=== PATIENT | female | born 2000 | race Caucasian/White ===

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

== ENCOUNTER 2020-10-21 09:51 | Emergency (ER) | payer OTHER, SELFPAY ==
--- OUTSIDE RECORDS SUMMARY | 2020-10-21 09:53 | XMS REPORT | Continuity of Care Document ---
:[address] [facility] Address [address] [place] [address] [address] [place] [address] Care Team Providers Name Role Phone Unavailable Unavailable Unavailable Problems Condition Condition Condition Status Onset Resolution Last Treating Co mments Source Name Details Category Date Date Treatment Clinician Date Depression Depression Problem Active [facility] Surveillan Surveillan Problem Active [facility] ce for ce for [facility] - [facility]oria control, control, l oral oral Outpati contracept contracept en t ailyn ailyn Clinics Depression Depression Problem Active [facility] screening screening [facility] Cough Cough Problem [facility] Wheezing Wheezing [facility] OCP (oral OCP (oral Problem Active [facility] contracept contracept Letitia kes - sayda pills) sayda pills) Me moria initiation initiation l Outpati ent Clinics Mild Mild Problem Active [facility] intermitte intermitte Letitia kes - nt asthma nt asthma Baldo tamiko with acute with acute l exacerbati exacerbati Ou tpati on on ent Clinics Seasonal Seasonal Problem Active [facility] allergies [facility] 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 Medications Ordered Filled Start Stop Current Ordering Indication Dosage Frequency Signature Comments Components Source Medication Medication Date Date Medication? Clinician (SIG) Name Name Albuterol Albuterol Yes Kelly 1-[address] [facility] Sulfate HFA Sulfate HFA Millender as needed [facility] Procedures This patient has no known procedures. Encounters Start End Encounter Admission Attending Care Care Encounter Source Date/Time Date/Time Type Type Clinicians Facility Department ID 2019-06-06 2019-06-06 Outpatient Jaquelin Gould [id number] [facility] 16:47[facility]00 16:47:00 [facility] 2018-12-15 2018-12-15 Outpatient Jaquelin Gould [id number] [facility] 15:00[facility]00 15:00[facility]00 [facility] ent Clinics Results This patient has no known results.
[2020-10-21] MEDS ORDERED: ALBUTEROL 2.5 MG/3 ML NEB SOL ONE (10:21)
[2020-10-21] MEDS ORDERED: IPRATROPIUM BROM 0.5MG/2.5ML ONE (10:22)
--- NOTE | 2020-10-21 10:44 | EDPHYS ---
Physician Documentation [facility] Name: Aleyda Barfield Age: 20 yrs Sex: Female : 2000 Arrival Date: 10/21/2020 Time: 09:52 Bed DIS8 Private MD: ED Physician William Dueñas HPI: 10/21 10:37 This 20 yrs old Female presents to ER via Ambulatory with complaints of pm1 Shortness Of Breath. 10:37 The patient has shortness of breath that occurred at home, and the patient has a pm1 history of asthma. Onset: The symptoms/episode began/occurred this morning. Duration: The symptoms are continuous. The patient's shortness of breath is aggravated by No medications for her asthma. Patient has not been able to afford her medications, is alleviated by nothing. Associated signs and symptoms: Pertinent negatives: chest pain, non-productive cough, fever, Earache sore throat runny nose. Severity of symptoms: in the emergency department the symptoms are worse. The patient has experienced similar episodes in the past, several times. The patient has not recently seen a physician. Historical: - Allergies: 09:55 No Known Allergies; ss - Home Meds: 09:55 None [Active]; ss - PMHx: 09:55 Asthma; ss - PSHx: 09:55 None; ss - Immunization history:: Client reports having NOT received the Covid vaccine. - Social history:: Smoking status: Reported history of juuling and/or vaping. ROS: 10:37 Constitutional: Negative for fever, chills, and weight loss, Cardiovascular: Negative pm1 for chest pain, palpitations, and edema. 10:37 Abdomen/GI: Negative for abdominal pain, nausea, vomiting, diarrhea, and constipation, Back: Negative for injury and pain, MS/Extremity: Negative for injury and deformity, Skin: Negative for injury, rash, and discoloration, Neuro: Negative for headache, weakness, numbness, tingling, and seizure. 10:37 Respiratory: Positive for shortness of breath. Exam: 10:37 Constitutional: This is a well developed, well nourished patient who is awake, alert, pm1 and in no acute distress. Head/Face: Normocephalic, atraumatic. 10:37 Back: No spinal tenderness. No costovertebral tenderness. Full range of motion. Skin: Warm, dry with normal turgor. Normal color with no rashes, no lesions, and no evidence of cellulitis. MS/ Extremity: Pulses equal, no cyanosis. Neurovascular intact. Full, normal range of motion. 10:37 Eyes: Exam is negative for acute changes, Extraocular movements: no acute changes, Conjunctiva: normal, no injection, Sclera: no acute changes, icterus, is present. 10:37 ENT: Exam is negative for acute changes, Mouth: no acute changes, Lips: normal, Oral mucosa: normal, pink and intact, moist. 10:37 Cardiovascular: Exam negative for acute changes, Rate: tachycardic, Rhythm: regular, Pulses: no pulse deficits are appreciated, Heart sounds: normal. 10:37 Respiratory: mild respiratory distress is noted, Respirations: tachypnea, that is mild, Breath sounds: wheezing: expiratory that is mild, is heard diffusely. 10:37 Abdomen/GI: Inspection: obese Palpation: abdomen is soft and non-tender, in all quadrants. 10:37 Neuro: Exam negative for acute changes, Orientation: is normal, Mentation: is normal, Motor: is normal, moves all fours, Sensation: is normal, no obvious gross deficits. Vital Signs: 09:52 Pulse 117; Resp 30; Pulse Ox 96% on R/A; Weight 90.72 kg; Height 5 ft. 7 in. (170.18 ss cm); 09:56 Resp 26; Temp 98.1(TE); Pulse Ox 98% ; ss 10:05 BP 187 / 112; Resp 24; Pulse Ox 99% on R/A; ss 09:52 Body Mass Index 31.32 (90.72 kg, 170.18 cm) ss MDM: 10:09 Patient medically screened. pm1 10:39 Data reviewed: vital signs. Data interpreted: Pulse oximetry: on room air is 99 %. pm1 Interpretation: normal. 10:40 Counseling: I had a detailed discussion with the patient and/or guardian regarding: the pm1 historical points, exam findings, and any diagnostic results supporting the discharge/admit diagnosis, the need for outpatient follow up, a family practitioner, a migratory worker, The need for medications to treat asthma exacerbations, to return to the emergency department if symptoms worsen or persist or if there are any questions or concerns that arise at home. Administered Medications: 10:05 Drug: Albuterol - atroVENT (ipratropium) (3:1) (2.5 mg - 0.5 mg) 3 ml Route: Nebulizer; 10:47 Drug: Decadron (dexamethasone) 10 mg Route: IM; Site: left deltoid; hb Disposition: 16:45 Co-signature as Attending Physician, William Dueñas. Co-signature as Attending Physician, ifeanyi Dueñas I agree with the assessment and plan of care. Disposition Summary: 10/21/20 10:43 Discharge Ordered Location: Home pm1 Problem: new pm1 Symptoms: have improved pm1 Condition: Stable pm1 Diagnosis - Unspecified asthma with (acute) exacerbation pm1 Followup: pm1 - With: Emergency Department - When: As needed - Reason: Worsening of condition Followup: pm1 - With: Private Physician - When: 2 - 3 days - Reason: Recheck today's complaints, Continuance of care, Re-evaluation by your physician Discharge Instructions: - Discharge Summary Sheet pm1 - Asthma, Adult pm1 Forms: - Medication Reconciliation Form pm1 - Thank You Letter pm1 - Antibiotic Education pm1 - Prescription Opioid Use pm1 Prescriptions: - Ventolin HFA 90 mcg/actuation Inhalation HFA aerosol inhaler - inhale 2 puff by INHALATION route every 4-6 hours As needed; 1 Inhaler; pm1 Refills: 0, Product Selection Permitted - Prednisone 20 mg Oral Tablet - take 3 tablets by ORAL route once daily for 5 days; 15 tablet; Refills: 0, pm1 Product Selection Permitted - Albuterol Sulfate 2.5 mg /3 mL (0.083 %) Inhalation Solution for Nebulization - inhale 1 unit by NEBULIZATION route every 8 hours As needed; 1 box; Refills: 0, pm1 Product Selection Permitted Signatures: Emily Street RN RN ss Oswaldo Gaytan, KAIA BELL HOLE DIGGER pm1 Argelia South RN RN William Dueñas3
--- NOTE | 2020-10-21 10:44 | ER ---
Nurse's Notes [facility] Name: Aleyda Barfield Age: 20 yrs Sex: Female : 2000 Arrival Date: 10/21/2020 Time: 09:52 Bed DIS8 Private MD: Diagnosis: Unspecified asthma with (acute) exacerbation Presentation: 10/21 09:52 Chief complaint: Patient states: Shortness of breath that began this morning. Pt ss reports a hx of asthma and is unable to afford her medication. Coronavirus screen: Client denies travel out of the [place] in the last 14 days. Ebola Screen: Patient denies exposure to infectious person. Patient denies travel to an Ebola-affected area in the 21 days before illness onset. Initial Sepsis Screen: Does the patient meet any 2 criteria? No. Patient's initial sepsis screen is negative. Does the patient have a suspected source of infection? No. Patient's initial sepsis screen is negative. Risk Assessment: Do you want to hurt yourself or someone else? Patient reports no desire to harm self or others. Onset of symptoms was October 21, 2020. 09:52 Method Of Arrival: Ambulatory 09:52 Acuity: KENYATTA 3 ss Historical: - Allergies: 09:55 No Known Allergies; ss - Home Meds: 09:55 None [Active]; ss - PMHx: 09:55 Asthma; ss - PSHx: 09:55 None; ss - Immunization history:: Client reports having NOT received the Covid vaccine. - Social history:: Smoking status: Reported history of juuling and/or vaping. Vital Signs: 09:52 Pulse 117; Resp 30; Pulse Ox 96% on R/A; Weight 90.72 kg; Height 5 ft. 7 in. (170.18 ss cm); 09:56 Resp 26; Temp 98.1(TE); Pulse Ox 98% ; ss 10:05 BP 187 / 112; Resp 24; Pulse Ox 99% on R/A; ss 09:52 Body Mass Index 31.32 (90.72 kg, 170.18 cm) ED Course: 09:52 Patient arrived in ED. ss 09:54 Oswaldo Gaytan NP is PHCP. pm1 09:54 William Dueñas is Attending Physician. pm1 09:55 Triage completed. ss 09:55 Arm band placed on. ss 10:46 Argelia South, RN is Primary Nurse. hb 11:04 No provider procedures requiring assistance completed. Patient did not have IV access hb during this emergency room visit. Administered Medications: 10:05 Drug: Albuterol - atroVENT (ipratropium) (3:1) (2.5 mg - 0.5 mg) 3 ml Route: Nebulizer; ss 10:47 Drug: Decadron (dexamethasone) 10 mg Route: IM; Site: left deltoid; hb Outcome: 10:43 Discharge ordered by MD. pm1 11:04 Discharged to home ambulatory. hb 11:04 Condition: stable 11:04 Discharge instructions given to patient, Instructed on discharge instructions, follow up and referral plans. medication usage, Demonstrated understanding of instructions, follow-up care, medications, Prescriptions given X 3. 11:05 Patient left the ED. hb Signatures: Emily Street RN RN Oswaldo Gaytan, GAMMA OPERATOR GAMMA OPERATOR pm1 Argelia South, DANIEL RN hb Corrections: (The following items were deleted from the chart) 09:57 09:56 Pulse 26bpm; Pulse Ox 98%; Temp 98.1F Temporal; ss ss
[2020-10-21] MEDS ORDERED: dexAMETHasone 10 MG/ML VIAL ONE (11:01)
[2020-10-21 11:10] VITALS: TEMP 98.1
[2020-10-21 11:13] VITALS: BP 187/112; O2SAT 99
== END 2020-10-21 11:05 | disposition home or self-care (01) ==
LOC: ER 09:51
DX: J45.901 Unspecified asthma with (acute) exacerbation (principal)
CPT/HCPCS: 96372; 99284; J1100